=== PATIENT | male | born 1980 | race Caucasian/White ===

== ENCOUNTER 2024-08-06 07:24 | Outpatient (CLI) | payer OTHER, SELFPAY ==
--- NOTE | ~2024-08-06 | US_ITS ---
EXAM: ABDOMEN ULTRASOUND HISTORY: Abd pain COMPARISON: None FINDINGS: LIVER: The liver is unremarkable in echogenicity and size measuring 16cm in longitudinal dimension. The main portal vein is patent demonstrating hepatopedal flow. The contour of the liver is smooth GALLBLADDER: No stones are identified within the gallbladder. No gallbladder wall thickening or pericholecystic fluid. BILE DUCTS: Common bile duct measures 3.3mm. PANCREAS: Limited evaluation of the pancreas secondary to overlying bowel gas SPLEEN: The spleen is unremarkable in echogenicity and size measuring 10.7cm in longitudinal dimensio n. RIGHT KIDNEY: 12.6 cm. In length. No hydronephrosis or bulky renal calculi. Is a well-circumscribed anechoic avascular focus measuring 18 x 21 x 16 mm consistent with a simple c yst for which no further follow-up is needed LEFT KIDNEY: 12.5cm in length. No hydronephrosis or renal calculi. VASCULATURE : The abdominal aorta is nonaneurysmal. The IVC is patent. IMPRESSION: Simple cyst within the right kidney. Evaluation of the pancreas is limited by overlying bowel gas. Reviewed, dictated and finalized at location A. [employer]
== END 2024-08-06 07:25 | disposition home or self-care (01) ==
PROVIDERS: PCP Student in an Organized Health Care Education/Training Program; Visit Provider Nurse Practitioner Family
DX: N28.1 Cyst of kidney, acquired (principal)
CPT/HCPCS: 76700